=== PATIENT | female | born 1995 | race Caucasian/White ===

== ENCOUNTER 2019-05-29 15:16 | Emergency (ER) | payer OTHER ==
[~2019-05-29] VITALS: Ht 162.6 cm; Wt 69.0 kg
[2019-05-29 15:19] VITALS: BP 128/88; PULSE 98; RESP 18; Ht 162.6 cm; Wt 69.0 kg
[2019-05-29] MEDS ORDERED: LIDO20SO19 MM (17:12)
--- NOTE | 2019-05-29 17:15 | ERD ---
ER Documentation Chief Complaint Chief Complaint mouth sores x 1 week HPI This patient is a 24-year-old female who presents complaining of sores on the inside of her mouth particularly on her lower inner lip as well as on her tongue. She states she has been having pain for about 1 week. She has pain with swallowing but is tolerating oral intake. No fevers. ROS All systems reviewed and are negative except as per history of present illness. Medications Home Meds Active Scripts Lidocaine (Lidocaine Viscous) 100 Ml Soln, 100 ML MM Q4 for 5 Days Please dispense magic mouthwash. 1 part viscous lidocaine 2%, 1 part maalox, 1 part diphenhydramine 12.5mg/5ml elixir. Si-2 tsp every 4 hours prn Prov:MARCELA BLACK PA-C 05/29/19 FmHx Family History: No diabetes Physical Exam Vitals Vital Signs Date Temp Pulse Resp B/P (MAP) Pulse Ox O2 O2 Flow FiO2 Time Delivery Rate 05/29/19 97.8 98 18 128/88 98 15:19 (101) Physical Exam Const: No acute distress Head: Atraumatic Eyes: Normal Conjunctiva ENT: Normal External Ears, Nose. Oropharynx is clear, small aphthous ulcer on lower inner lip, no obvious tongue lesions Neck: Full range of motion. No meningismus. Resp: Clear to auscultation bilaterally Cardio: Regular rate and rhythm, no murmurs Procedures/MDM Patient has pain in her mouth. Exam is nonemergent. Prescription for Magic mouthwash given. Patient counseled regarding my diagnostic impression and care plan. Prior to discharge all questions answered. Pt agrees with treatment plan and understands strict return precautions. Pt is instructed to follow up with primary care provider within 24-48 hours. Precautionary instructions provided including instructions to return to the ER if not improving or for any worsening or changing symptoms or concerns. Departure Diagnosis: Primary Impression: Tongue pain Additional Impression: Sore in mouth Condition: Stable Patient Instructions: Dental Pain Additional Instructions: Call your primary care doctor TOMORROW for an appointment during the next 1-2 days.See the doctor sooner or return here if your condition worsens before your appointment time. MARCELA BLACK PA-C May 29, 2019 17:15
== END 2019-05-29 17:47 | disposition home or self-care (01) ==
LOC: FTE 15:16
DX: K13.79 Other lesions of oral mucosa (principal); K14.6 Glossodynia
CPT/HCPCS: 99283